=== PATIENT | female | born 1955 | race African-American/Black ===

== ENCOUNTER 2018-04-04 21:19 | Emergency (ER) | payer BC, OTHER ==
[~2018-04-04] VITALS: Ht 162.6 cm; Wt 83.5 kg
[~2018-04-04 21:19] MED LIST: NKM; NORCO 5-325 TA1 EACH ORAL
[2018-04-04] MEDS ORDERED: Norco 5mg/325mg tab ORAL ONE (21:45)
[2018-04-04] MEDS ORDERED: NORCO 5-325 TA1 EACH ORAL (21:49)
--- NOTE | 2018-04-04 21:49 | Emergency Room Report ---
History of Present Illness General Chief Complaint: Lower Extremity Injury Source: Patient Present Illness HPI Is a 63-year-old female with no significant past medical history. She presents with chief complaint of left knee pain from a fall. She tripped over her foot as she was getting something out of the trunk yesterday afternoon. She has multiple soft tissue injury but most her pain is to the left knee. She presents with left knee pain. No loss of consciousness. Able to ablate on it. No fever chills but no nausea no vomiting. Pain is sharp and throbbing in nature. 8 out of 10. She took a Tylenol 3 that she got for her root canal and is not helping. Worse with walking. Better with rest. No other injury. Allergies: Coded Allergies: No Known Allergies (Unverified , 06/12/13) Patient History Past Medical History: see triage record, old chart reviewed Past Surgical History: other Pertinent Family History: none Social History: Denies: smoking Now: No Immunizations: other Reviewed Nursing Documentation: PMH: Agreed; PSxH: Agreed Nursing Documentation-PMH Hx Hypertension: Yes Review of Systems Eye: Denies: eye pain, blurred vision ENT: Denies: ear pain, nose congestion, throat swelling Respiratory: Denies: cough, shortness of breath Cardiovascular: Denies: chest pain, palpitations Gastrointestinal: Denies: abdominal pain, diarrhea, nausea, vomiting Musculoskeletal: Reports: joint pain; Denies: back pain Skin: Denies: rash Neurological: Denies: headache, numbness Endocrine: Denies: increased thirst, increased urine Hematologic/Lymphatic: Denies: easy bruising All Other Systems: negative except mentioned in HPI Physical Exam Vital Signs Date Time Temp Pulse Resp B/P (MAP) Pulse Ox O2 Delivery O2 Flow Rate FiO2 04/04/18 21:22 98.7 61 18 170/84 97 Room Air 98.8 vitals with high blood pressure Sp02 EP Interpretation: reviewed, normal General Appearance: well appearing, no apparent distress, alert Head: normocephalic, atraumatic Eyes: bilateral eye PERRL, bilateral eye EOMI ENT: hearing grossly normal, normal pharynx Neck: full range of motion, supple, no meningismus Respiratory: chest non-tender, lungs clear, normal breath sounds Cardiovascular #1: regular rate, rhythm, no murmur Gastrointestinal: normal bowel sounds, non tender, no mass, no organomegaly, no bruit, non-distended Musculoskeletal: back normal, gait/station normal, normal range of motion, other - Left knee: There is abrasion over the patella and some contusion. Full range of motion of the knee. There is tender to palpation. Knee is stable. Sensation normal. Neurologic: alert, oriented x3 Psychiatric: mood/affect normal Skin: warm/dry Medical Decision Making Diagnostic Impression: Primary Impression: Abrasion, left knee, initial encounter Additional Impression: Contusion of left knee, initial encounter ER Course Patient with soft tissue injury to her knee. No fracture or dislocation. I offered tetanus immunization but she deferred. Other X-Ray Diagnostic Results Other X-Ray Diagnostic Results : X-Ray ordered: left knee x-rays # of Views/Limited Vs Complete: 4 View Indication: Pain EP Interpretation: Yes Interpretation: no dislocation, no soft tissue swelling, no fractures Impression: No acute disease Electronically Signed by: Latrell Odonnell MD Last Vital Signs Date Time Temp Pulse Resp B/P (MAP) Pulse Ox O2 Delivery O2 Flow Rate FiO2 04/04/18 21:22 98.7 61 18 170/84 97 Room Air 98.8 Status: improved Disposition: HOME, SELF-CARE Condition: Stable Scripts Hydrocodone Bit/Acetaminophen 5-325* (NORCO 5-325*) 1 Each Tablet 1 TAB ORAL Q6H PRN for For Pain, #20 TAB 0 Refills Prov: LATRELL ODONNELL M.D. 04/04/18 Additional Instructions: Ice pack to the area. Follow-up with your doctor in 7 days. Return if worse. LATRELL ODONNELL M.D. Apr 04, 2018 21:49
[2018-04-04 22:09] VITALS: BP 170/84
--- NOTE | 2018-04-05 08:16 | Diagnostic Imaging Report ---
Indication: Trauma, pain, status post fall Technique: 3 views of the left knee Comparison: None Findings: There are superior pole patellar traction osteophytes. No effusions. Joint spaces are preserved. No acute fractures. No dislocations Impression: Mild degenerative changes, as described. No acute process
== END 2018-04-04 22:05 | disposition home or self-care (01) ==
LOC: EMR 21:37
DX: S80.212A Abrasion, left knee, initial encounter (principal); S80.02XA Contusion of left knee, initial encounter; W01.0XXA Fall on same level from slipping, tripping and stumbling without subsequent striking against object, initial encounter; Y93.89 Activity, other specified; Y92.018 Other place in single-family (private) house as the place of occurrence of the external cause; I10 Essential (primary) hypertension
CPT/HCPCS: 99283

== ENCOUNTER 2018-08-29 13:28 | Emergency (ER) | payer MEDICAID, OTHER ==
[~2018-08-29] VITALS: Ht 162.6 cm; Wt 81.6 kg
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
[2018-08-29] MEDS ORDERED: UNOBMED (13:45)
--- NOTE | 2018-08-29 14:01 | NUR ---
ED Nurse Note: Pt went down for xray.
[2018-08-29 14:51] VITALS: BP 132/66
[2018-08-29 14:54] LABS: BASOPHILS % (AUTO) 1.1 % (0.0-2.0); EOSINOPHILS % (AUTO) 0.1 % (0.0-3.0); HEMATOCRIT 42.5 % (37.0-47.0); HEMOGLOBIN 13.9 G/DL (12.0-16.0); LYMPHOCYTES % (AUTO) 24.6 % (20.0-45.0); MEAN CORPUSCULAR VOLUME 95 FL (80-99); MONOCYTES % (AUTO) 6.1 % (1.0-10.0); PLATELET COUNT 230 K/UL (150-450); RED BLOOD COUNT 4.47 M/UL (4.20-5.40); RED CELL DISTRIBUTION WIDTH 12.2 % (11.6-14.8); WHITE BLOOD COUNT 8.9 K/UL (4.8-10.8)
[2018-08-29 14:55] VITALS: BP 131/63
--- NOTE | 2018-08-29 14:56 | NUR ---
ED Nurse Note: Orthostatic BP Laying 131/63 HR 63 Sitting 145/69 HR 62 Standing 132/66 HR 60
--- NOTE | 2018-08-29 14:56 | NUR ---
ED Nurse Note: Notified Arleth CEBALLOS of orthostatics
[2018-08-29 15:01] LABS: ANION GAP 8 mmol/L (5-15); BLOOD UREA NITROGEN 10 mg/dL (7-18); CALCIUM 9.3 MG/DL (8.5-10.1); CARBON DIOXIDE 30 MMOL/L (21-32); CHLORIDE 103 MMOL/L (98-107); POTASSIUM 3.7 MMOL/L (3.5-5.1); SODIUM 141 MMOL/L (136-145)
[2018-08-29 15:06] LABS: ALANINE AMINOTRANSFERASE 21 U/L (12-78); ALBUMIN 3.9 G/DL (3.4-5.0); ALKALINE PHOSPHATASE 146 U/L (46-116); ASPARTATE AMINO TRANSFERASE 11 U/L (15-37); BILIRUBIN,TOTAL 0.5 MG/DL (0.2-1.0); CREATINE KINASE 65 U/L (26-308)
[2018-08-29] MEDS ORDERED: traMADol 50mg tab ORAL ONE (16:00)
[2018-08-29] MEDS ORDERED: TYLENOL EXTRA500 MG ORAL (16:08)
[2018-08-29] MEDS ORDERED: TRAMADOL HCL50 MG ORAL (16:08)
--- NOTE | 2018-08-29 16:08 | Emergency Room Report ---
History of Present Illness General Chief Complaint: Syncope Source: Medical Record Present Illness HPI 63-year-old female presents to the emergency department complaining of 10 out of 10 in severity tenderness to the tailbone since yesterday. Patient states status post syncopal episode upon awakening and getting up out of bed yesterday morning. Patient states that she had loss of consciousness that she woke up on the ground. Patient denies midline neck pain, tenderness to the head, nausea, vomiting or weakness/paresthesias in the extremities. Patient denies bruising or open wounds. Reports her only significant past medical history high blood pressure. Denies CP, Palpitations, AMS, dizziness, Changes in Vision, or a sudden severe headache. Reports hx of syncopal episode once many years ago. Denies taking blood thinning medications. Allergies: Coded Allergies: No Known Allergies (Unverified , 06/12/13) Patient History Past Medical History: see triage record, HTN Past Surgical History: none Pertinent Family History: none Last Menstrual Period: menopause Now: No Reviewed Nursing Documentation: PMH: Agreed; PSxH: Agreed Nursing Documentation-PMH Past Medical History: No History, Except For Hx Hypertension: Yes Review of Systems All Other Systems: negative except mentioned in HPI Physical Exam Vital Signs Date Time Temp Pulse Resp B/P (MAP) Pulse Ox O2 Delivery O2 Flow Rate FiO2 08/29/18 13:38 98.2 81 19 159/82 95 Room Air Sp02 EP Interpretation: reviewed, normal General Appearance: no apparent distress, alert, GCS 15, non-toxic Head: normocephalic, atraumatic Eyes: bilateral eye normal inspection, bilateral eye PERRL ENT: hearing grossly normal, normal voice Neck: full range of motion, no carotid bruits Respiratory: chest non-tender, lungs clear, normal breath sounds, no wheezing, speaking full sentences Cardiovascular #1: regular rate, rhythm, no edema, normal capillary refill Gastrointestinal: normal bowel sounds, non tender, soft Genitourinary: normal inspection, no CVA tenderness Musculoskeletal: gait/station normal, normal range of motion, tender - TTP to the Coccyx, no L-spin, T-Spine, or C-SPine TTP, no paraspinal muscular ttp. Pt. is ambulatory. no bruises. 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 , grossly normal Psychiatric: judgement/insight normal Skin: normal color, no rash, warm/dry, well hydrated Lymphatic: no adenopathy Medical Decision Making PA Attestation Dr. Carroll is my supervising Physician whom patient management has been discussed with. Diagnostic Impression: Primary Impression: Coccygeal contusion Qualified Codes: S30.0XXA - Contusion of lower back and pelvis, initial encounter Additional Impression: Syncope Qualified Codes: R55 - Syncope and collapse ER Course 63-year-old female presents to the emergency department complaining of 10 out of 10 in severity tenderness to the tailbone since yesterday. Patient states status post syncopal episode upon awakening and getting up out of bed yesterday morning. Patient states that she had loss of consciousness that she woke up on the ground. Patient denies midline neck pain, tenderness to the head, nausea, vomiting or weakness/paresthesias in the extremities. Patient denies bruising or open wounds. Reports her only significant past medical history high blood pressure. Denies CP, Palpitations, AMS, dizziness, Changes in Vision, or a sudden severe headache. Reports hx of syncopal episode once many years ago. Denies taking blood thinning medications. Ddx considered but are not limited to dysrhythmia, methamphetamine, hypoglycemia , hypovolemia, , intracranial process, vasovagal. Vital signs: are WNL, pt. is afebrile H&PE are most consistent with syncopal episode- yesterday and possible musculoskeletal injury resulting. no focal neurological deficits, NAD, no midline neck pain. ORDERS: -12-lead EK NSR -CBC, CMP: Unremarkable/WNL -CK: WNL -Troponin: WNL OrthoStatic VS: WNL ED INTERVENTIONS: -1000 mL normal saline bolus IV -Tramadol PO -Lidoderm Patch TP. -I do not identify an emergent condition at this time. With current presentation , pt. is stable for close outpatient follow up and conservative treatment. D/ w pt. to return promptly to ED with worsening or new symptoms.- Pt. verbalizes' understanding and agreement with proposed treatment plan. I discussed with patient that she should not be driving until she is medically cleared by primary care provider or neurologist. DISCHARGE: At this time pt. is stable for d/c to home. Will provide printed patient care instructions, and any necessary prescriptions. Care plan and follow up instructions have been discussed with the patient prior to discharge. Labs Test 08/29/18 14:40 White Blood Count 8.9 K/UL (4.8-10.8) Red Blood Count 4.47 M/UL (4.20-5.40) Hemoglobin 13.9 G/DL (12.0-16.0) Hematocrit 42.5 % (37.0-47.0) Mean Corpuscular Volume 95 FL (80-99) Mean Corpuscular Hemoglobin 31.2 PG (27.0-31.0) Mean Corpuscular Hemoglobin Concent 32.8 G/DL (32.0-36.0) Red Cell Distribution Width 12.2 % (11.6-14.8) Platelet Count 230 K/UL (150-450) Mean Platelet Volume 8.4 FL (6.5-10.1) Neutrophils (%) (Auto) 68.0 % (45.0-75.0) Lymphocytes (%) (Auto) 24.6 % (20.0-45.0) Monocytes (%) (Auto) 6.1 % (1.0-10.0) Eosinophils (%) (Auto) 0.1 % (0.0-3.0) Basophils (%) (Auto) 1.1 % (0.0-2.0) Sodium Level 141 MMOL/L (136-145) Potassium Level 3.7 MMOL/L (3.5-5.1) Chloride Level 103 MMOL/L (98-107) Carbon Dioxide Level 30 MMOL/L (21-32) Anion Gap 8 mmol/L (5-15) Blood Urea Nitrogen 10 mg/dL (7-18) Creatinine 1.0 MG/DL (0.55-1.30) Estimat Glomerular Filtration Rate > 60 mL/min (>60) Glucose Level 89 MG/DL (74-106) Calcium Level 9.3 MG/DL (8.5-10.1) Total Bilirubin 0.5 MG/DL (0.2-1.0) Aspartate Amino Transf (AST/SGOT) 11 U/L (15-37) Alanine Aminotransferase (ALT/SGPT) 21 U/L (12-78) Alkaline Phosphatase 146 U/L (46-116) Total Creatine Kinase 65 U/L (26-308) Troponin I 0.010 ng/mL (0.000-0.056) Total Protein 7.8 G/DL (6.4-8.2) Albumin 3.9 G/DL (3.4-5.0) Globulin 3.9 g/dL Albumin/Globulin Ratio 1.0 (1.0-2.7) EKG Diagnostic Results EP Interpretation: Dr. Carroll Rate: normal - 61 Rhythm: NSR ST Segments: no acute changes ASA given to the pt in ED: No PA Scribe Text This Interpretation was scribed by TUCKER Jane. Other X-Ray Diagnostic Results Other X-Ray Diagnostic Results : X-Ray ordered: Sacrum and Coccyx # of Views/Limited Vs Complete: 3 View Indication: Pain EP Interpretation: Yes PA Xray: Interpretation reviewed, by supervising MD, and agrees with findings. Interpretation: no dislocation, no soft tissue swelling, no fractures Impression: No acute disease Electronically Signed by: Arleth Jane PA-C Last Vital Signs Date Time Temp Pulse Resp B/P (MAP) Pulse Ox O2 Delivery O2 Flow Rate FiO2 08/29/18 14:55 131/63 08/29/18 14:51 98.1 63 8 99 Room Air Disposition: HOME, SELF-CARE Condition: Stable Scripts Lidocaine (Lidoderm) 1 Each Adh..patch 1 PATCH TOPIC DAILY, #30 PATCH 0 Refills Patch(es) may remain in place for up to 12 hours in any 24-hour period. Prov: Arleth Jane 08/29/18 Acetaminophen* (TYLENOL EXTRA STRENGTH*) 500 Mg Tablet 500 MG ORAL Q6H, #20 TAB 0 Refills Prov: Arleth Jane 08/29/18 Tramadol Hcl* (ULTRAM*) 50 Mg Tablet 50 MG ORAL Q6H PRN for For Pain, #12 TAB 0 Refills Prov: Arleth Jane 08/29/18 Referrals: [facility] (PCP) Patient Instructions: Contusion, [id number], Syncope Additional Instructions: Take medications as directed. Follow up with a Primary Care Provider in 3-5 days For a referral to have NEUROLOGIST Evaluation, even if your symptoms have resolved. --Please review list of primary care clinics, if you do not already have a primary care provider Return sooner to ED if new symptoms occur, or current symptoms become worse. Do not drive or operate heavy machinery while taking tramadol as this medication is known to cause dizziness and and impair you ability to make decisions. Do not drive until cleared and evaluated by your primary care provider or neurologist. - Please note that this Emergency Department Report was dictated using [employer]foreign diplomat technology software, occasionally this can lead to erroneous entry secondary to interpretation by the dictation equipment. Arleth Jane Aug 29, 2018 16:08
[2018-08-29] MEDS ORDERED: LIDODERM700 M1 TOPIC (16:15)
--- NOTE | 2018-08-29 16:23 | NUR ---
ED Nurse Note: Discharge instructions given to pt. Answered all questions. Verbalized understanding. No acute distress noted. ID band and IV site removed. Left ER w/ a steady gait and all belongings.
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
--- NOTE | 2018-08-29 16:56 | Diagnostic Imaging Report ---
Indication: Shortness of breath Technique: One view of the chest Comparison: none Findings: The heart is mildly enlarged. Lungs and pleural spaces are clear. Impression: Borderline cardiomegaly No definite acute process
[2018-08-29 17:21] VITALS: BP 125/60
--- NOTE | 2018-08-30 16:59 | Cardiology Report ---
APPROVED REPORT EKG Measurement Heart [id number] Normal sinus rhythm Normal ECG
== END 2018-08-29 16:13 | disposition home or self-care (01) ==
LOC: EMR 14:02
DX: S30.0XXA Contusion of lower back and pelvis, initial encounter (principal); W06.XXXA Fall from bed, initial encounter; Y92.003 Bedroom of unspecified non-institutional (private) residence as the place of occurrence of the external cause; R55 Syncope and collapse; I10 Essential (primary) hypertension
CPT/HCPCS: 36415; 71045; 72220; 80053; 82550; 84484; 85025; 93005; 96360; 99284

== ENCOUNTER 2018-09-23 16:40 | Emergency (ER) | payer MEDICAID ==
[~2018-09-23] VITALS: Ht 162.6 cm; Wt 77.1 kg
[~2018-09-23 16:40] MED LIST changes: +LIDODERM700 M1 TOPIC; +TRAMADOL HCL50 MG ORAL; +TYLENOL EXTRA500 MG ORAL; +UNOBMED
[2018-09-23 17:00] VITALS: BP 150/93
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
--- NOTE | 2018-09-23 18:32 | Diagnostic Imaging Report ---
EXAM: XR Right Shoulder Complete, 2 or More Views CLINICAL HISTORY: TRAUMA TECHNIQUE: Two or more views of the right shoulder. COMPARISON: No relevant prior studies available. FINDINGS: Bones/joints: Study limited due to nondiagnostic scapular Y-view. Mild acromial clavicular joint arthrosis. Osteopenia. Mild glenohumeral degenerative findings. No fracture or acute osseous abnormality. No dislocation. Soft tissues: Unremarkable. IMPRESSION: 1. Study limited due to nondiagnostic scapular Y-view. 2. No acute traumatic injury. 3. Osteopenia. 4. Mild AC joint arthrosis.
[2018-09-23 18:33] LABS: APPEARANCE,URINE CLOUDY; BILIRUBIN, URINE NEGATIVE (NEGATIVE); GLUCOSE, URINE (UA) NEGATIVE (NEGATIVE); KETONES,URINE NEGATIVE (NEGATIVE); LEUKOCYTE ESTERASE ,URINE 1+ (NEGATIVE); NITRITE,URINE POSITIVE (NEGATIVE); PH,URINE 6 (4.5-8.0); PROTEIN,URINE 1+ (NEGATIVE); UROBILINOGEN,URINE NORMAL MG/DL (0.0-1.0)
--- NOTE | 2018-09-23 18:33 | Diagnostic Imaging Report ---
EXAM: XR Chest, 1 View CLINICAL HISTORY: TRAUMA TECHNIQUE: Frontal view of the chest. COMPARISON: 08/29/18 FINDINGS: Lungs: Unremarkable. No consolidation. Pleural space: Unremarkable. No pneumothorax. Heart: Unremarkable. No cardiomegaly. Mediastinum: Unremarkable. Bones/joints: Osteopenia. IMPRESSION: 1. No acute cardiopulmonary disease. 2. Osteopenia. 3. Otherwise unremarkable study.
[2018-09-23 18:34] LABS: COLOR,URINE YELLOW
--- NOTE | 2018-09-23 19:05 | NUR ---
HAND-OFF: Report given to ABBEY Willis. All orders carried. ERMD at bedside and talking to the pt at this moment.
[2018-09-23] MEDS ORDERED: NITROFURANTOIN100 M2 ORAL (19:23)
[2018-09-23] MEDS ORDERED: IBUPROFEN600 MG ORAL (19:23)
[2018-09-23] MEDS ORDERED: TRAMADOL HCL50 MG ORAL (19:23)
[2018-09-23 19:30] VITALS: BP 150/93
--- NOTE | 2018-09-23 19:30 | NUR ---
ER Nurse Note: Pt seen, treated, medically cleared by ERMD by pt for discharge. Discharge instructions and prescriptions given with repeat verbalization by pt. Instructed pt to follow up with primary care physican within one week. Pt a&ox4, VSS, no signs of distress. ID band removed. Left via own transportation with steady gait.
== END 2018-09-23 19:30 | disposition home or self-care (01) ==
LOC: EMR 19:20
DX: S09.93XA Unspecified injury of face, initial encounter (principal); S00.83XA Contusion of other part of head, initial encounter; S00.33XA Contusion of nose, initial encounter; S43.402A Unspecified sprain of left shoulder joint, initial encounter; S43.401A Unspecified sprain of right shoulder joint, initial encounter; N39.0 Urinary tract infection, site not specified; R09.89 Other specified symptoms and signs involving the circulatory and respiratory systems; I10 Essential (primary) hypertension; Y04.2XXA Assault by strike against or bumped into by another person, initial encounter; Y93.89 Activity, other specified; Y92.89 Other specified places as the place of occurrence of the external cause
CPT/HCPCS: 70450; 70486; 71045; 81001; 87086; 87181; 99284

== ENCOUNTER 2020-06-28 15:11 | Emergency (ER) | payer MEDICAID, OTHER ==
[~2020-06-28] VITALS: Ht 162.6 cm; Wt 74.8 kg
[~2020-06-28 15:11] MED LIST changes: +IBUPROFEN600 MG ORAL; +NITROFURANTOIN100 M2 ORAL
[2020-06-28 15:26] VITALS: BP 125/67
--- NOTE | 2020-06-28 15:34 | Emergency Room Report ---
History of Present Illness General Chief Complaint: Upper Respiratory Illness Source: Patient Present Illness HPI Patient is a 65-year-old female presents for increased generalized body aches and weakness for proximally 6 to 7 days. Reports having multiple episodes of watery diarrhea as well as fever up to 101 degrees and nonproductive cough. Reports having moderate headache since beginning of illness. Had no recent bloody stools. Reportedly had a syncopal episode after standing up. Reports having multiple episodes of watery diarrhea had not noticed any blood in her stools. Patient had recently been prescribed azithromycin as well as albuterol inhaler but has no prior history of asthma. Denies any prior cardiac history. 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 COVID-19 Screening: Negative COVID-19 COVID-19 Testing Source: october 2019 Patient History Past Medical History: see triage record Reviewed Nursing Documentation: PMH: Agreed; PSxH: Agreed Nursing Documentation-PMH Past Medical History: No Stated History Hx Hypertension: Yes Review of Systems All Other Systems: negative except mentioned in HPI Physical Exam Vital Signs Date Time Temp Pulse Resp B/P (MAP) Pulse Ox O2 Delivery O2 Flow Rate FiO2 06/28/20 15:18 98.6 80 16 125/67 (86) 94 Room Air Sp02 EP Interpretation: reviewed, normal General Appearance: normal inspection, well appearing, no apparent distress, alert, GCS 15, obese Head: atraumatic ENT: normal ENT inspection, hearing grossly normal, normal voice Neck: normal inspection, full range of motion, supple, no bony tend Respiratory: normal inspection, lungs clear, normal breath sounds, no respiratory distress, no retraction, no wheezing Cardiovascular #1: regular rate, rhythm, no edema Gastrointestinal: normal inspection, normal bowel sounds, non tender, soft, no guarding, no hernia Genitourinary: no CVA tenderness Musculoskeletal: normal inspection, back normal, normal range of motion Neurologic: alert, motor strength/tone normal, 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 Differential diagnosis include was not limited to urinary tract infection, colitis, coronavirus infection, pneumonia, among others. Because of complexity of patient's case laboratory tests and imaging studies were ordered. Last Vital Signs Date Time Temp Pulse Resp B/P (MAP) Pulse Ox O2 Delivery O2 Flow Rate FiO2 06/28/20 15:26 80 16 Room Air 06/28/20 15:26 98.6 125/67 94 Slava King MD Jun 28, 2020 15:34
[2020-06-28 16:28] LABS: EOSINOPHILS % (AUTO) 0.6 % (0.0-3.0); HEMATOCRIT 38.4 % (37.0-47.0); HEMOGLOBIN 12.8 G/DL (12.0-16.0); LYMPHOCYTES % (AUTO) 38.6 % (20.0-45.0); MEAN CORPUSCULAR VOLUME 94 FL (80-99); MONOCYTES % (AUTO) 7.1 % (1.0-10.0); NEUTROPHILS % (AUTO) 52.7 % (45.0-75.0); PLATELET COUNT 239 K/UL (150-450); RED CELL DISTRIBUTION WIDTH 13.8 % (11.6-14.8); WHITE BLOOD COUNT 8.9 K/UL (4.8-10.8)
--- NOTE | 2020-06-28 16:33 | Diagnostic Imaging Report ---
EXAM: XR Chest, 1 View CLINICAL HISTORY: COUGH TECHNIQUE: Frontal view of the chest. COMPARISON: Chest radiograph On 09/23/2018 FINDINGS: Hardware: None. Lungs/pleura: Lower lung opacities. No pleural effusion or pneumothorax. Heart/mediastinum: Size of the cardiac silhouette. Soft tissues: Unremarkable. Bones: No acute fracture. Upper abdomen: Normal. IMPRESSION: Lower lung opacities may represent atelectasis versus infectious/inflammatory process.
[2020-06-28 16:47] LABS: ANION GAP 6 mmol/L (5-15); BLOOD UREA NITROGEN 11 mg/dL (7-18); CALCIUM 8.8 MG/DL (8.5-10.1); CARBON DIOXIDE 27 MMOL/L (21-32); CHLORIDE 105 MMOL/L (98-107); CREATININE 0.9 MG/DL (0.55-1.30); POTASSIUM 3.7 MMOL/L (3.5-5.1); SODIUM 138 MMOL/L (136-145)
[2020-06-28 16:59] LABS: ALANINE AMINOTRANSFERASE 21 U/L (12-78); ALBUMIN 3.7 G/DL (3.4-5.0); ALBUMIN/GLOBULIN RATIO 0.9 (1.0-2.7); ALKALINE PHOSPHATASE 154 U/L (46-116); ASPARTATE AMINO TRANSFERASE 13 U/L (15-37); BILIRUBIN,TOTAL 0.3 MG/DL (0.2-1.0); CREATINE KINASE 97 U/L (26-308); FERRITIN 143 NG/ML (8-388)
[2020-06-28 17:13] VITALS: BP 132/73
[2020-06-28 17:25] LABS: CKMB 0.5 NG/ML (0.0-3.6); LACTATE DEHYDROGENASE 163 U/L (81-234)
[2020-06-28] MEDS ORDERED: VITAMIN D325 MC1 PO ×2 (17:35)
[2020-06-28] MEDS ORDERED: LORATADINE10 M1 PO ×2 (17:35)
[2020-06-28 17:48] VITALS: BP 125/79
[2020-06-29] MEDS ORDERED: VITAMIN D325 MC1 PO (15:34)
[2020-06-29] MEDS ORDERED: LORATADINE10 M1 PO (15:34)
== END 2020-06-28 17:49 | disposition home or self-care (01) ==
LOC: EMR 15:35
DX: R05 Cough (principal); R53.1 Weakness; M79.10 Myalgia, unspecified site; R50.9 Fever, unspecified; R19.7 Diarrhea, unspecified; Z20.828 Contact with and (suspected) exposure to other viral communicable diseases; I10 Essential (primary) hypertension; F41.9 Anxiety disorder, unspecified; M54.2 Cervicalgia; M54.9 Dorsalgia, unspecified; G89.29 Other chronic pain
CPT/HCPCS: 36415; 71045; 80053; 82550; 82553; 82728; 83605; 83615; 83690; 83735; 83880; 84484; 85025; 85379; 85610; 85730; 86140; 87040; 93005; 96360; U0004; Z7502; 99284